=== PATIENT | male | born 1975 | race Two or more races ===

== ENCOUNTER 2021-12-04 09:38 | Inpatient (IN) | payer OTHER ==
[~2021-12-04] VITALS: Ht 175.3 cm; Wt 86.4 kg
[2021-12-04] VITALS (24 sets, daily range): BP systolic 90–141; BP diastolic 55–100
[2021-12-04] MEDS ORDERED: ASPirin 81 mg TAB PO ONE (10:00)
[2021-12-04] MEDS ORDERED: HEPARIN 1,000 UNITS/ml 1ML VIAL IV ONE (10:00)
[2021-12-04] MEDS ORDERED: NITROGLYCERIN 0.4 MG SL TAB SL PRN (10:15)
[2021-12-04] MEDS ORDERED: MORPHINE SULFATE INJ 2 MG/ml SYRG IV PRN (10:15)
[2021-12-04 10:20] LABS: Basophils # (auto) 0.1 10 ^3/uL (0-0.2); Basophils % (auto) 0.9 % (0.0-2.0); Eosinophils # (auto) 0.3 10 ^3/uL (0-0.8); Eosinophils % (auto) 3.8 % (0.0-7.0); Hemoglobin 14.8 g/dL (13.5-17.5); Lymphocytes # (auto) 2.9 10 ^3/uL (0.4-5.4); Lymphocytes % (auto) 40.8 % (10.0-50.0); Mean Corpuscular Hemoglobin 28.3 pg (28.0-32.0); Mean Corpuscular Hgb Conc. 33.7 g/dL (32.0-36.0); Monocytes # (auto) 0.5 10 ^3/uL (0-1.3); Monocytes % (auto) 6.3 % (0.0-12.0); Neutrophils # (auto) 3.4 10 ^3/uL (1.6-8.6); Neutrophils % (auto) 48.2 % (37.0-80.0); Nucleated Red Blood Cells % 0.1 %; Red Blood Cells 5.24 10^6/uL (4.5-5.90); Red Cell Distribution Width 12.7 % (11.8-14.3); White Blood Cell 7.2 10^3/uL (4.4-10.8)
[2021-12-04] MEDS ORDERED: VERAPAMIL 2.5MG/ML INJ 2ML VIAL IV ONE (10:20)
[2021-12-04] MEDS ORDERED: fentaNYL CITRATE 100 MCG/2 ML VL ONE (10:20)
[2021-12-04] MEDS ORDERED: ANGIOMAX 250 MG VIAL IV ONE ×2 (10:20→11:24)
[2021-12-04] MEDS ORDERED: MIDAZOLAM HCL 2MG/2ML 2ml VIAL (1mg/ml) ONE (10:20)
[2021-12-04] MEDS ORDERED: SODIUM CHL 0.9% 50 ML ONE ×2 (10:21→11:24)
[2021-12-04] MEDS ORDERED: LIDOCAINE 2%HCL (LOCAL ANESTH.) INJ 20ML MDV ONE ×2 (10:21→11:11)
[2021-12-04 10:25] LABS: Calcium 8.9 mg/dL (8.5-10.1); Magnesium 2.1 mg/dL (1.6-2.6); Potassium 3.8 mmol/L (3.5-5.1)
[2021-12-04] MEDS ORDERED: SODIUM CHLORIDE 0.9% 1,000 ML IV ONE (10:30)
[2021-12-04 10:31] LABS: Albumin 3.6 g/dL (3.4-5.0); BUN/Creatinine Ratio 17.1; Bilirubin, Total 0.8 mg/dL (0.2-1.0); Total Protein 6.8 g/dL (6.4-8.2)
[2021-12-04] MEDS ORDERED: HYDROmorphone HCL 2 MG/ML VL/or syr ONE (10:49)
[2021-12-04] MEDS ORDERED: IODIXANOL 320MG/ML 100ML BTL IV ONE (10:54)
[2021-12-04] MEDS ORDERED: ATROPINE SULF 1 MG/10ml SYR ONE (11:40)
[2021-12-04] MEDS ORDERED: EPTIFIBATIDE INJ (2MG/ML) 10ML VIAL IV ONE (11:45)
[2021-12-04] MEDS ORDERED: CLOPIDOGREL 300 MG TAB ONE (12:06)
[2021-12-04] MEDS ORDERED: EPTIFIBATIDE DRIP(0.75MG/ML) 100 ML IV ONE (12:07)
[2021-12-04] MEDS: EPTIFIBATIDE DRIP(0.75MG/ML) 100 ML IV SCH ×2 (14:03→18:59)
[2021-12-04] MEDS: NITROGLYCERIN 0.4 MG SL TAB SL PRN (19:23)
[2021-12-04] MEDS ORDERED: MORPHINE SULFATE 4 MG/ML SYR/VIAL IV ONE (19:30)
[2021-12-04] MEDS: MORPHINE SULFATE INJ 2 MG/ml SYRG IV PRN (20:04)
[2021-12-04] MEDS: HYDROmorphone HCL 2 MG/ML VL/or syr IV PRN (21:47)
[2021-12-05] VITALS (53 sets, daily range): BP systolic 94–125; BP diastolic 53–81
[2021-12-05] MEDS: EPTIFIBATIDE DRIP(0.75MG/ML) 100 ML IV SCH (00:37)
[2021-12-05] MEDS: HYDROmorphone HCL 2 MG/ML VL/or syr IV PRN ×6 (01:36→20:35)
[2021-12-05] MEDS: NITROGLYCERIN 0.4 MG SL TAB SL PRN (02:42)
[2021-12-05] MEDS: MORPHINE SULFATE INJ 2 MG/ml SYRG IV PRN (03:04)
[2021-12-05 04:30] LABS: Basophils # (auto) 0 10 ^3/uL (0-0.2); Basophils % (auto) 0.3 % (0.0-2.0); Eosinophils # (auto) 0 10 ^3/uL (0-0.8); Eosinophils % (auto) 0.3 % (0.0-7.0); Hematocrit 40.9 % (41.0-53.0); Hemoglobin 13.5 g/dL (13.5-17.5); Lymphocytes # (auto) 1.5 10 ^3/uL (0.4-5.4); Lymphocytes % (auto) 13.2 % (10.0-50.0); Mean Corpuscular Hemoglobin 27.8 pg (28.0-32.0); Mean Corpuscular Hgb Conc. 33.1 g/dL (32.0-36.0); Monocytes # (auto) 0.8 10 ^3/uL (0-1.3); Monocytes % (auto) 7.2 % (0.0-12.0); Red Blood Cells 4.87 10^6/uL (4.5-5.90); White Blood Cell 11.4 10^3/uL (4.4-10.8)
[2021-12-05 04:50] LABS: Potassium 4.1 mmol/L (3.5-5.1)
[2021-12-05 04:59] LABS: Albumin 3.4 g/dL (3.4-5.0); BUN/Creatinine Ratio 22.8; Bilirubin, Total 1.8 mg/dL (0.2-1.0); Calcium 8.6 mg/dL (8.5-10.1); Total Protein 6.3 g/dL (6.4-8.2)
[2021-12-05] MEDS ORDERED: HEPARIN DRIP/D5W 100UNITS/ML 250 ML IV SCH ×2 (08:00→18:15)
[2021-12-05] MEDS ORDERED: HEPARIN SODIUM (PORCINE) 5000 UNITS/ML 1ML VIAL IV ONE (08:00)
[2021-12-05] MEDS ORDERED: HYDROmorphone HCL 2 MG/ML VL/or syr IV ONE (08:00)
[2021-12-05] MEDS ORDERED: NITROGLYCERIN 50MG/250ML 250 ML IV SCH (08:00)
[2021-12-05] MEDS ORDERED: NITROGLYCERIN 50MG/250ML 250 ML IV ONE (08:04)
[2021-12-05] MEDS ORDERED: SODIUM CHLORIDE 0.9% 1,000 ML IV ONE ×2 (09:15)
[2021-12-05] MEDS ORDERED: CLOPIDOGREL BISULFATE 75 MG TAB PO SCH (10:00)
[2021-12-05] MEDS ORDERED: ASPirin 81 mg TAB PO SCH (10:00)
[2021-12-05 11:48] LABS: INR 1.07 (0.9-1.15); Partial Thromboplastin Time 38.9 sec (24.6-33.4)
[2021-12-05 17:55] LABS: INR 1.1 (0.9-1.15); Partial Thromboplastin Time 38.8 sec (24.6-33.4)
[2021-12-05] MEDS ORDERED: ATORVASTATIN 20 MG TAB PO SCH (22:00)
== END 2021-12-05 20:53 | disposition short-term general hospital (02) | DRG 251 ==
LOC: ER 09:38 → TELE 10:10 → ICU WEST 13:40
PROVIDERS: ADMIT Registered Nurse; ATTEND Internal Medicine
PROC: 02713ZZ Dilation of Coronary Artery, Two Arteries, Percutaneous Approach (ICD-10-PCS; principal; 2021-12-04)
PROC: 02C13ZZ Extirpation of Matter from Coronary Artery, Two Arteries, Percutaneous Approach (ICD-10-PCS; 2021-12-04)
PROC: 4A023N7 Measurement of Cardiac Sampling and Pressure, Left Heart, Percutaneous Approach (ICD-10-PCS; 2021-12-04)
PROC: B2111ZZ Fluoroscopy of Multiple Coronary Arteries using Low Osmolar Contrast (ICD-10-PCS; 2021-12-04)
DX: I21.19 ST elevation (STEMI) myocardial infarction involving other coronary artery of inferior wall (principal); I47.2 Ventricular tachycardia; E78.5 Hyperlipidemia, unspecified; I10 Essential (primary) hypertension; Z20.822 Contact with and (suspected) exposure to COVID-19; R00.1 Bradycardia, unspecified; I95.9 Hypotension, unspecified
CPT/HCPCS: 36415; 71045; 80053; 80061; 83735; 84484; 85025; 85610; 85730; 87081; 92924; 92925; 93005; 93306; 93458; 96361; 96374; 96375; 99152; 99153; 99291; G0378; J2250; Q9967